=== PATIENT | female | born 1975 | race Caucasian/White ===

== ENCOUNTER 2020-09-25 12:28 | Outpatient (REF) | payer OTHER, SELFPAY | END 2020-09-25 12:29 | disposition home or self-care (01) | LOC: HO.LAB 12:28 | PROVIDERS: Visit Provider Nurse Practitioner Family | DX: Z20.828 Contact with and (suspected) exposure to other viral communicable diseases (principal); R11.0 Nausea | CPT/HCPCS: U0003 ==

== ENCOUNTER → 2020-12-11 10:23 | Outpatient (BNVA) | payer OTHER, SELFPAY | PROVIDERS: PCP Internal Medicine; Visit Provider Surgery Vascular Surgery | DX: I83.12 Varicose veins of left lower extremity with inflammation (principal) | CPT/HCPCS: 99202 ==

== ENCOUNTER 2020-12-16 10:17 | Outpatient (REF) | payer OTHER, SELFPAY ==
--- NOTE | ~2020-12-16 | US_ITS ---
EXAMINATION: US VENOUS ULTRASOUND WITH DOPPLER LOWER EXTREMITY, BILATERAL CLINICAL INFORMATION: EXAMINATION: RIGHT and LEFT LOWER EXTREMITY VENOUS ULTRASOUND (Reflux Exam) CLINICAL INDICATION: leg pain and varicose veins. COMPARISON: None. TECHNIQUE: Color flow triplex imaging and compression Doppler was performed to evaluate both the deep and the superficial systems bilaterally. To evaluate the superficial system, the examination was performed in the upright position. Color-flow Doppler ultrasound and compression ultrasound were utilized. In addition, maneuvers were utilized to demonstrate reflux. FINDINGS: 1. DEEP VENOUS ULTRASOUND OF THE RIGHT LOWER EXTREMITY: Respiratory variation, normal compression and augmented flow are noted in the right common femoral vein as well as the right popliteal vein and there is no evidence of deep venous thrombosis at these locations. There is no evidence of reflux in the deep system in either the common femoral vein or the popliteal vein. There is no evidence of a Velásquez's cyst. 2. SUPERFICIAL ULTRASOUND WITH DOPPLER OF RIGHT LOWER EXTREMITY: The right great saphenous vein at the saphenofemoral junction measures 9 mm, at the mid thigh 4 mm, tzauv-xkg-brsy 4 mm, sdpfr-xpa-gsil 4 mm, at mid calf 2 mm and at the ankle measures 3 mm. There is no reflux demonstrated in the right great saphenous vein. There is a lateral accessory greater saphenous vein that measures 3 mm and does not demonstrate reflux. The right small saphenous vein measures 2 mm and shows no reflux. There is a bariatric nurse in the proximal calf that measures 2 mm and does not demonstrate reflux. 3. DEEP VENOUS ULTRASOUND OF THE LEFT LOWER EXTREMITY: Respiratory variation, normal compression and augmented flow are noted in the left common femoral vein as well as the left popliteal vein and there is no evidence of deep venous thrombosis at these locations. There is no evidence of reflux in the deep system in either the common femoral vein or the popliteal vein. . There is no evidence of a Velásquez's cyst. 4. SUPERFICIAL ULTRASOUND WITH DOPPLER OF LEFT LOWER EXTREMITY: Left great saphenous vein at the saphenofemoral junction measures 8 mm, at the mid thigh 5 mm, qzwft-arv-mcjq 5 mm, sjkgu-kes-xavm 3 mm, at mid calf 2 mm and at the ankle measures 2 mm. There is no reflux demonstrated in the left great saphenous vein. There is an accessory lateral greater saphenous vein that measures 4 mm and does not demonstrate reflux. The left small saphenous vein measures 2-3 mm and shows no reflux. There is a bariatric nurse in the distal calf that measures 2 mm and does not demonstrate reflux. There is a varicosity at the saphenofemoral junction measures 3 mm and does not demonstrate reflux. US/US venous duplex LE BI IMPRESSION: 1. No evidence of reflux or thrombus in the common femoral veins or popliteal veins bilaterally. 2. The saphenous systems are competent bilaterally.
== END 2020-12-16 10:18 | disposition home or self-care (01) ==
LOC: HO.US 10:17
PROVIDERS: PCP Internal Medicine; Visit Provider Surgery Vascular Surgery
DX: I83.893 Varicose veins of bilateral lower extremities with other complications (principal)
CPT/HCPCS: 93970

== ENCOUNTER → 2020-12-30 09:58 | Outpatient (BNVA) | payer OTHER, SELFPAY | PROVIDERS: PCP Internal Medicine; Visit Provider Surgery Vascular Surgery | DX: I83.12 Varicose veins of left lower extremity with inflammation (principal) | CPT/HCPCS: 99212 ==

== ENCOUNTER 2022-02-10 12:03 | Outpatient (REF) | payer OTHER, SELFPAY ==
[2022-02-10 13:50] LABS: MANUAL DIFF FLAG NO
[2022-02-10 14:01] LABS: Basophils Percent Auto 0.7 % (0-2); Eosinophils Absolute Auto 0.1 X10*3/uL (0.0-0.4); Eosinophils Percent Auto 1.1 % (0-4); Hematocrit 39.4 % (37.0-47.0); Imm Gran Abs Auto 0.01 X10*3/uL (0.00-0.03); Imm Gran Pct Auto 0.2 % (0.0-0.4); Lymphocytes Absolute Auto 1.8 X10*3/uL (1.2-4.9); Lymphocytes Percent Auto 39.6 % (20-40); Mean Corpuscular Volume 93.8 fL (80.0-98.0); Mean Platelet Volume 9.6 fL (9.4-12.3); Monocytes Absolute Auto 0.5 X10*3/uL (0.1-1.2); Monocytes Percent Auto 11.6 % (2-11); Neutrophils Absolute Auto 2.1 x10*3/uL (2.0-8.3); Neutrophils Percent Auto 46.8 % (45-73); Platelet Count 291 X10*3/uL (160-400); Red Cell Distribution Width 12.9 % (11.0-16.0); White Blood Count 4.6 X10*3/uL (4.8-10.8)
[2022-02-10 14:20] LABS: Alanine Aminotransferase 18 U/L (0-31); Albumin Level 4.2 g/dL (3.5-5.0); Alkaline Phosphatase 54 U/L (39-117); Anion Gap 9 (12-20); Aspartate Amino Transferase 16 U/L (5-31); Bilirubin Total 0.3 mg/dL (0.0-1.0); Blood Urea Nitrogen 16 mg/dL (9-16); Calcium 9.4 mg/dL (8.4-10.2); Carbon Dioxide 27 mmol/L (22-29); Chloride 105 mmol/L (96-108); Estimated Glomerular Filt Rate > 60; Glucose Random 91 mg/dL (60-115); Potassium 4.7 mmol/L (3.3-5.1); Sodium 136 mmol/L (135-145)
[2022-02-10 14:25] LABS: TSH reflex Free T4 1.56 uIU/mL (0.32-4.0); Vitamin D 25-OH Total 21.2 ng/mL (>30)
== END 2022-02-10 12:04 | disposition home or self-care (01) ==
LOC: HO.HMGCLDS 12:03
PROVIDERS: PCP Internal Medicine; Visit Provider Internal Medicine
DX: R53.83 Other fatigue (principal)
CPT/HCPCS: 36415; 80053; 82306; 84443; 85025

== ENCOUNTER 2022-06-25 16:21 | Outpatient (REF) | payer OTHER, SELFPAY ==
[2022-06-25 17:21] LABS: Influenza A PCR NEGATIVE (Negative); Influenza B PCR NEGATIVE (Negative); Resp Syncy Virus RNA Qual PCR NEGATIVE (Negative); SARS COV2 PCR INHOUSE NEGATIVE (Negative)
== END 2022-06-25 16:22 | disposition home or self-care (01) ==
LOC: HO.LNP 16:21
DX: Z20.822 Contact with and (suspected) exposure to COVID-19 (principal); R05.9 Cough, unspecified
CPT/HCPCS: 0241U

== ENCOUNTER 2022-11-08 09:12 | Outpatient (AMB) | payer OTHER, SELFPAY ==
--- NOTE | 2022-11-08 09:15 | A.OFFPC_ITS ---
Vital Signs 11/08/22 09:38 Height 5 ft 6 in Weight 162 lb BMI 26.1 BP 136/80 Blood Pressure Location Lt brachial Position Sitting Pulse 79 Pulse Source Pulse Oximeter Pulse Oximetry (%) 99 Oxygen Delivery Method Room Air Intake Visit Reasons: PE Intake Note: Pt is here today for her PE Allergies bupropion Allergy (Unknown, Verified 11/08/22 09:50) Constipation Medication List - Last Reconciled 11/08/22 by Becky Nowak MD escitalopram oxalate 10 mg PO QAM Tobacco use date assessed: 11/08/22 HPI PE HPI Details 47-year-old lady, with history of depression, currently stable controlled on escitalopram 10 mg once daily in the morning, currently being followed by psych wellness care and sees Dayna Martinez every 2 months now , here today for physical exam. She has been complaining of intermittent episodes of heartburn, and bloating, and is overdue to get her colon cancer screening. Complains of having hard time taking deep breath still, after margaret COVID, has frequent nasal congestion, postnasal drainage and sinus headaches are worse at night. [facility] Medical History Allergic rhinitis Colon cancer screening Cough COVID-19 long hauler manifesting chronic fatigue Depression Heartburn History of 2019 novel coronavirus disease (COVID-19) Vitamin D deficiency Surgical History Ganglion cyst of finger of right hand Family History Father HTN (hypertension) Lung cancer Mother Breast cancer Paternal Grandmother Breast cancer Brother No problems noted. Brother No problems noted. Sister No problems noted. Sister No problems noted. Daughter No problems noted. Social History Housing: House Alcohol intake: current Patient Tobacco Use Status: Current someday Tobacco user e-Cigarette/Vaping Use: Never Used service: No Current occupational status: employed Cognitive needs: No Hearing needs: No Vision needs: No Questionnaire PHQ-9 Over the last 2 weeks, how often have you been bothered by any of the following problems? 1. Little interest or pleasure in doing things: several days 2. Feeling down, depressed, or hopeless: several days 3. Trouble falling or staying asleep, or sleeping too much: several days 4. Feeling tired or having little energy: several days 5. Poor appetite or overeating: several days 6. Feeling bad about yourself - or that you are a failure or have let yourself or your family down: not at all 7. Trouble concentrating on things, such as reading the newspaper or watching television: not at all 8. Moving or speaking so slowly that other people could have noticed. Or the opposite - being so fidgety or restless that you have been moving around a lot more than usual: not at all 9. Thoughts that you would be better off or of hurting yourself in some way: not at all Total score: 5 Depression Screening Interpretation: Positive Depression Screening Follow-up: Existing condition and In treatment 81372 - PHQ-9 Billing: Yes (sees Christie Ca every 2 months for counseling) Source: Developed by Drs. Baron Puckett, Jessica Hicks, Brad Wynn and colleagues, with an educational chris from [employer]. Thrive Questionnaire Declines Thrive assessment: No Date Thrive assessed: 11/08/22 I am a: Patient What is your living situation today?: I have a steady place to live Within the past 12 months, did the food you bought not last and you didn't have the money to get more?: Never true Within the past 12 months, did you worry whether your food would run out before you got money to buy more?: Never true Do you have trouble paying for medicines?: No Do you have trouble getting transportation to medical appointments?: No Do you have trouble paying your heating and electricity bill?: No Do you have trouble taking care of your child, family member or friend?: No Do you have trouble with day-to-day activities such as bathing, preparing meals, shopping, managing finances, etc.?: No Are you currently unemployed and looking for a job?: No Are you interested in more education?: No AUDIT C Alcohol Use Questionnaire (AUDIT-C) 1. How often do you have a drink containing alcohol?: 2-3 times a week 2. How many drinks containing alcohol do you have on a typical day when you are drinking?: 1 or 2 3. How often do you have six or more drinks on one occasion?: Never Total Score: 3 CHRISTOPHER-7 AMB Questionnaire CHRISTOPHER-7 Date CHRISTOPHER - 7 assessed: 11/08/22 Feeling nervous, anxious, or on edge: 1 = Several days Not being able to stop or control worryin = Not at all Worrying too much about different things: 0 = Not at all Trouble relaxin = Several days Being so restless that it is hard to sit still: 0 = Not at all Becoming easily annoyed or irritable: 1 = Several days Feeling afraid as if something awful might happen: 0 = Not at all Total CHRISTOPHER-7 score (0-4 normal; 5-9 mild; 10-14 moderate; 15-21 severe): 3 Source: Developed by Drs. Baron Puckett, Jessica Hicks, Brad Wynn and colleagues, with an educational chris from [employer]. CHRISTOPHER-7 Assessment Billing CHRISTOPHER-7 Assessment Tool: CHRISTOPHER-7 Assessment 95677 Review of Systems Const Denies body aches, Denies chills, Denies fever(s), Denies poor appetite and Denies weakness Eyes Denies change in vision ENT Reports Normal hearing present, Denies dry mouth, Denies ear discharge, Denies otalgia, Denies epistaxis, Denies neck pain, Denies sore throat and Denies throat swelling Card Denies chest pain, Denies chest pain at rest, Denies chest pain with activity and Denies pedal edema Resp Denies pain on inspiration, Denies pain with cough and Denies wheezing GI Reports as per HPI, Denies abdominal pain, Denies melena, Reports bloating, Denies hematochezia and Denies change in bowel habits Denies urinary frequency, Denies difficulty voiding, Denies dysuria, Denies urinary incontinence and Denies urinary hesitancy Musc Denies abnormal gait, Denies myalgias, Denies arthralgias, Denies muscle cramps, Denies muscle weakness and Denies neck pain Skin/Breast Denies rash and Denies skin pain Neuro Reports Normal hearing present, Denies abnormal gait and Denies weakness Psych Reports no additional complaints Endo Reports no additional complaints Boris/Lymph Denies easy bleeding, Denies easy bruising and Denies lymphadenopathy Aller/Immun Denies throat swelling and Denies wheezing Physical exam (Primary Care) Vital Signs: Last Vital Signs Pulse 79 11/08/22 09:38 BP 136/80 11/08/22 09:38 Pulse Ox 99 11/08/22 09:38 Oxygen Delivery Method Room Air 11/08/22 09:38 BMI result Body Mass Index 26.1 Tobacco/Smoking Status: Tobacco use Status Tobacco use date assessed 11/08/22 11/08/22 09:16 Patient Tobacco Use Status Current someday Tobacco 11/08/22 09:16 e-Cigarette/Vaping Use Never Used 11/08/22 09:16 PHQ-9: PHQ-9 Score PHQ-9: Total score 5 11/08/22 10:23 Depression Screening Interpretation: Positive Depression Screening Follow-up: Existing condition and In treatment Thrive Assessment: Date of Thrive Assessment Date Thrive assessed 11/08/22 11/08/22 09:48 Const General: comfortable, no acute distress and alert Orientation/consciousness: patient oriented x3 Limitations: no limitations HENMT Ears: external ears normal, TM's normal bilaterally and EAC's normal General nose exam: Normal external nose present and No nasal discharge present Mouth: Normal oral and palatal mucosa present, oropharynx normal and moist mucous membranes Eyes General: appearance normal, both eyes and all related structures Conjunctivae: conjunctivae normal Sclerae: sclerae normal Pupils: Equal, round and reactive pupils present EOM: EOMs intact bilaterally Neck Neck: Yes full ROM, Yes no lymphadenopathy and Yes supple Resp Effort & Inspection: normal respiratory effort and able to speak in complete sentences Auscultation: clear to auscultation bilaterally Cardio Rate: regular rate Rhythm: regular rhythm Heart sounds: S1 normal heart sound present and S2 normal heart sound present GI Palpation (GI): Soft to palpation, nontender and no masses Auscultation: normal bowel sounds Back/Spine/Pelvis Back: No back tenderness Skin General skin exam: no rashes or lesions noted Neuro General: patient oriented x3, gait normal, tone normal, moves all extremities, Normal light touch and pain sensation and no focal motor deficits Cranial nerves: Yes Equal, round and reactive pupils present and Yes Normal hearing present Cognition (Neuro): normal cognition Extrem General: Yes full ROM, Yes no joint enlargement, Yes no clubbing, cyanosis or edema and Yes no calf tenderness Psych Appearance: grossly normal and well kempt Mental Status: mental status grossly normal Speech and movement: Normal speech and movement present Affect: normal affect Attitude: cooperative Thought process: Normal thought process present Thought content: Normal thought content present Immunizations Boostrix Tdap Performing Provider: Becky Nowak MD Administered by: Mer Gale CMA on 11/08/22 10:25 Dose Route Admin Location Lot Number Expiration Date [employer] 0.5 mL IM Left Deltoid [id number] 09/01/24 [id number] [employer] VIS Given Date VIS Provided VIS Publication Date 11/08/22 Single Vaccine 21 Eligibility Eligibility Date Funding Source Not C Eligible 11/08/22 Private Assessment and Plan Assessment & Plan (1) Depression: Code(s): F32.9 - Major depressive disorder, single episode, unspecified Qualifiers: Active/Remission status: in full remission Depression Type: major depressive disorder Major depression recurrence: recurrent Qualified Code(s): F33.42 - Major depressive disorder, recurrent, in full remission Plan: Stable controlled on escitalopram 10 mg once a day and currently being followed at [facility], sees her therapist every 2 months now (2) Annual visit for general adult medical examination with abnormal findings: Code(s): Z00.01 - Encounter for general adult medical examination with abnormal findings Plan: Will check appropriate labs. Recommended dental visit every 6 months and regular eye exams, at least every 2 years. Take adequate calcium in diet and vitamin-D 3 at 2000 IU per cap once a day, in addition to weight-bearing exercises to help maintain good muscle tone and weight control. Instructed to do self-breast exam, and continue to get yearly mammogram. Referred for her screening colonoscopy. Reminded to get her COVID booster, has to get the flu shot, will give her a Tdap today. (3) Heartburn: Code(s): R12 - Heartburn Plan: Advised to food triggers for heartburn, avoid eating late at night, may take an occasional Pepcid AC osqo-oiv-awlmtjl once a day as needed for heartburn symptoms, patient was referred to GI for further evaluation and management (4) Allergic rhinitis: Code(s): J30.9 - Allergic rhinitis, unspecified Plan: Prescription sent for loratadine 10 mg once a day as needed for nasal congestion and rhinorrhea and prescription also sent for fluticasone nasal spray 1 spray per nostril as needed for nasal congestion. (5) Colon cancer screening: Code(s): Z12.11 - Encounter for screening for malignant neoplasm of colon Plan: Referred to GI clinic for screening colonoscopy (6) Vitamin D deficiency: Code(s): E55.9 - Vitamin D deficiency, unspecified Plan: Will check vitamin-D level Orders: Orders Alanine Aminotransferase Today E55.9 - Vitamin D deficiency, unspecified, F33.42 - Major depressive disorder, recurrent, in full remission, Z00.01 - Encounter for general adult medical examination with abnormal findings Aspartate Amino Transferase Today E55.9 - Vitamin D deficiency, unspecified, F33.42 - Major depressive disorder, recurrent, in full remission, Z00.01 - Encounter for general adult medical examination with abnormal findings Glucose Fasting Today E55.9 - Vitamin D deficiency, unspecified, F33.42 - Major depressive disorder, recurrent, in full remission, Z00.01 - Encounter for general adult medical examination with abnormal findings Lipid Panel Today E55.9 - Vitamin D deficiency, unspecified, F33.42 - Major depressive disorder, recurrent, in full remission, Z00.01 - Encounter for general adult medical examination with abnormal findings Vitamin D 25-OH Total Today E55.9 - Vitamin D deficiency, unspecified, F33.42 - Major depressive disorder, recurrent, in full remission, Z00.01 - Encounter for general adult medical examination with abnormal findings TDaP Immunization Today Z23 - Encounter for immunization Referrals Gastroenterology Referral R12 - Heartburn, Z12.11 - Encounter for screening for malignant neoplasm of colon Medications: New fluticasone propionate 50 mcg/actuation administer into each nostril 1 spray intranasal DAILY 16 grams 0RF J30.9 - Allergic rhinitis, unspecified loratadine (Allergy Relief (loratadine)) 10 mg PO DAILY PRN 30 tabs 0RF allergy symptoms Coding Level of Care Code Est Pt Prev Care 40-64y([id number]) Diagnoses Depression F33.42 Active/Remission status: in full remission Depression Type: major depressive disorder Major depression recurrence: recurrent Annual visit for general adult medical examination with abnormal findings Z00.01 Heartburn R12 Allergic rhinitis J30.9 Colon cancer screening Z12.11 Vitamin D deficiency E55.9 Additional Codes CHRISTOPHER-7 Assessment Billing - CHRISTOPHER-7 Assessment Tool: CHRISTOPHER-7 Assessment [id number] ([id number])
[2022-11-08 09:38] VITALS: BP 136/80; PULSE 79; O2SAT 99; BMI 26.1
== END 2022-11-08 10:24 | disposition home or self-care (01) ==
LOC: HO.HMGC 09:12
PROVIDERS: PCP Internal Medicine; Visit Provider Internal Medicine
DX: F33.42 Major depressive disorder, recurrent, in full remission (principal); Z00.01 Encounter for general adult medical examination with abnormal findings; R12 Heartburn; J30.9 Allergic rhinitis, unspecified; Z12.11 Encounter for screening for malignant neoplasm of colon; E55.9 Vitamin D deficiency, unspecified
CPT/HCPCS: 99499

== ENCOUNTER 2023-01-12 08:56 | Outpatient (REF) | payer OTHER, SELFPAY ==
[2023-01-12 12:13] LABS: Alanine Aminotransferase 16 U/L (0-31); Aspartate Amino Transferase 15 U/L (5-31); Cholesterol 230 mg/dL; Glucose Fasting 87 mg/dL (60-99); HDL Cholesterol 72 mg/dL; LDL Cholesterol Calculated 142 mg/dl; Triglycerides 83 mg/dL
[2023-01-12 12:40] LABS: Vitamin D 25-OH Total 34.7 ng/mL (>30)
== END 2023-01-12 08:57 | disposition home or self-care (01) ==
LOC: HO.HMGCLDS 08:56
PROVIDERS: PCP Internal Medicine; Visit Provider Internal Medicine
DX: Z00.01 Encounter for general adult medical examination with abnormal findings (principal); E55.9 Vitamin D deficiency, unspecified; F33.42 Major depressive disorder, recurrent, in full remission
CPT/HCPCS: 36415; 80061; 82306; 82947; 84450; 84460

== ENCOUNTER → 2023-02-09 12:00 | Outpatient (BNVA) | payer OTHER, SELFPAY | PROVIDERS: PCP Internal Medicine; Referring Provider Internal Medicine; Visit Provider Physician Assistant | DX: Z12.11 Encounter for screening for malignant neoplasm of colon (principal); R12 Heartburn | CPT/HCPCS: 99202 ==

== ENCOUNTER → 2023-12-21 08:18 | Day surgery (SDC) | payer OTHER, SELFPAY ==
--- NOTE | 2023-12-20 08:18 | HO.ANESPROP2 ---
Documented by User: Delma Barnes NP 12/20/23 08:18 HPI - Anesthesia Eval Consult details Narrative: 48yo F for Upper Endoscopy and Colonoscopy PMFSH Active Problems Active Problems: All Active Problems (Updated 11/08/22 @ 10:14 by Becky Nowak MD) Allergic rhinitis (Acute) Colon cancer screening (Acute) Heartburn (Acute) Vitamin D deficiency (Acute) COVID-19 amanda hauler manifesting chronic fatigue (Acute) Varicose veins of left lower extremity with inflammation (Acute) Depression (Acute) Past Medical History Medical History Allergic rhinitis Colon cancer screening Cough COVID-19 amanda hauler manifesting chronic fatigue Depression Heartburn History of 2019 novel coronavirus disease (COVID-19) Vitamin D deficiency Family History Family History Father HTN (hypertension) Lung cancer Mother Breast cancer Paternal Grandmother Breast cancer Brother No problems noted. Brother No problems noted. Sister No problems noted. Sister No problems noted. Daughter No problems noted. Surgical History Surgical History Ganglion cyst of finger of right hand Social History Social History Housing: House Alcohol intake: current Patient Tobacco Use Status: Current someday Tobacco user e-Cigarette/Vaping Use: Never Used Advance Directives: No Advance Directives Information Provided: Yes service: No Current occupational status: employed Cognitive needs: No Hearing needs: No Vision needs: No Meds Allergies Allergy/AdvReac Type Severity Reaction Status Date / Time bupropion Allergy Unknown Constipatio Verified 12/21/23 09:02 n Home Medications Medication Instructions Recorded Confirmed Last Taken Type escitalopram oxalate 20 mg tablet 20 mg PO DAILY 12/21/23 12/21/23 Unknown History nortriptyline 25 mg capsule 25 mg PO BEDTIME 12/21/23 12/21/23 Unknown History Assessment and Plan Assessment Anesthesia Assessment: Chart Reviewed Documented by User: Yael Jackson MD 12/21/23 09:16 [facility] Past Medical History Medical History Allergic rhinitis Colon cancer screening Cough COVID-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 Brother No problems noted. Sister No problems noted. Sister No problems noted. Daughter No problems noted. Family history of problems with anesthesia: No Surgical History Surgical History Ganglion cyst of finger of right hand History of Problems with Anesthesia: No Social History Social History Housing: House Alcohol intake: current Patient Tobacco Use Status: Current someday Tobacco user e-Cigarette/Vaping Use: Never Used Advance Directives: No Advance Directives Information Provided: Yes service: No Current occupational status: employed Cognitive needs: No Hearing needs: No Vision needs: No Meds Allergies Allergy/AdvReac Type Severity Reaction Status Date / Time bupropion Allergy Unknown Constipatio Verified 12/21/23 09:02 n Home Medications Medication Instructions Recorded Confirmed Last Taken Type escitalopram oxalate 20 mg tablet 20 mg PO DAILY 12/21/23 12/21/23 Unknown History nortriptyline 25 mg capsule 25 mg PO BEDTIME 12/21/23 12/21/23 Unknown History Exam Airway Mallampati Class: II TM Dist: >3cm Neck ROM: Full Heart: rrr Lungs: cta Assessment and Plan Assessment Anesthesia Assessment: Anesthesia Plan Discussed Final Anesthetic Review Family History of Problems with Anesthesia: No History of Problems with Anesthesia: No NPO: Yes ASA Class: II Final Preanesthetic Review: No Changes in Pt Med Stat, Meds/Allgs Chart Reviewed and Consent Obtained/Reviewed Patient Risk: Low Procedure Risk: Intermediate Anesthetic Plan Anesthetic Plan: MAC: Disposition: Standard PACU
[2023-12-21 09:00] VITALS: BMI 25.8
--- NOTE | 2023-12-21 09:10 | P.HPSUR_ITS ---
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 Depression Heartburn History of 2019 novel coronavirus disease (COVID-19) Vitamin D deficiency) History of Previous Operations: Relevant previous surgery/procedure and date(s) (Ganglion cyst of finger of right hand) Allergies: Allergies Allergy/AdvReac Type Severity Reaction Status Date / Time bupropion Allergy Unknown Constipatio Verified 12/21/23 09:02 n Review of Systems Sugical H&P ROS: Negative: Constitution, Cardiovascular, Respiratory, Neurological, Psychiatric, Hem-Onc, Allergic/Immunologic, Gastrointestinal, Genitourinary, Musculoskeletal, Integumentary, Endocrine and Ey es/Ears/Nose/Throat Exam Surgical H&P Exam: Normal: HEENT, Normal: Heart, Normal: Lungs, Normal: Extremities, Normal: Abdomen, Normal: Skin and Normal: Neurological Plan Diagnosis/Plan: Unchanged I have reviewed the history and physical and performed a pertinent physical examination on my patient. No changes have occurred unless specified. Time Spent With Patient Time: Total time managing care of this patient today ____ minutes.
[2023-12-21 09:17] LABS: UPreg QC Valid YES; Urine Pregnancy NEGATIVE (NEGATIVE)
[2023-12-21 09:25] VITALS: BP 175/101; PULSE 76; RESP 18; TEMP 36.8; O2SAT 98
[2023-12-21] MEDS: Lactated Ringers 1,000 ML 100 ML IVCONT (09:36)
--- NOTE | 2023-12-21 09:37 | P.OP_ITS ---
Operative Note Operative Note Date of Service: 12/21/23 Narrative: Operative Information Procedure Description: EGD, Colonoscopy Indication: [] Anesthesia: [] FLEXIBLE TRANSORAL UPPER GASTROINTESTINAL ENDOSCOPY AND COLONOSCOPY PROCEDURE NOTE UPPER ENDOSCOPY Consent: Indications for the procedure and potential complications of bleeding, perforation, reaction to medications and missed diagnosis were discussed with the patient and informed consent was obtained. Instrument: Olympus GIF H 190 J mid size upper endoscope Monitoring: Vital signs and clinical assessment, continuous EKG monitoring, Pulse oximetry, Carbon Dioxide monitoring and blood pressure monitoring were done throughout the procedure. Procedure: The patient was placed in the left lateral decubitis position and pre-procedure medications were administered and a bite block was placed. The endoscope was inserted into the mouth and advanced under direct vision to the third part of duodenum. A careful inspection was made as the upper endoscope was withdrawn including a retroflexed examination of the proximal stomach; Findings and interventions are described below. Findings: Larynx:normal Esophagus: GE junction at 40 cm, diaphragm hiatus at 40 cm, normal mucosa Stomach: Normal mucosa. Biopsies were obtained. Grade 2 flap valve on retroflexed examination of the cardia. Duodenum: Normal bulb and descending duodenum, Intervention: Biopsies as noted above, COLONOSCOPY Instrument: Olympus variable stiffness pediatric scope 190L Colonoscopy Monitoring: Vital signs and clinical assessment, continuous EKG monitoring, Pulse oximetry, Carbon Dioxide monitoring and blood pressure monitoring were done throughout the procedure. Colon withdrawal time was [] minutes. Procedure: The patient was placed in the left lateral decubitis position and pre-procedure medications were administered. After a digital rectal examination of the ano-rectum, the video colonoscope was inserted into the rectum and advanced through the colon to the cecum/TI. The colonoscope was slowly withdrawn in a retrograde panoramic fashion and the colon mucosa was carefully examined including a retroflexed view of the rectum. Findings and interventions are described below. Procedure Difficulty:moderate Findings: Terminal Ileum-normal Cecum:normal Ascending Colon: normal Transverse Colon -normal Descending Colon:normal Sigmoid Colon: normal Rectum: Retroflexion with [] internal hemorrhoids, grade [] Anorectum - normal Colon preparation: [place] Bowel Preparation Scale Right colon; [] Transverse colon: [] Left colon; [] (0 = Unprepared colon segment with mucosa not seen due to solid stool that cannot be cleared. 1 = Portion of mucosa of the colon segment seen, but other areas of the colon segment not well seen due to staining, residual stool and/or opaque liquid. 2 = Minor amount of residual staining, small fragments of stool and/or opaque liquid, but mucosa of colon segment seen well. 3 = Entire mucosa of colon segment seen well with no residual staining, small fragments of stool or opaque liquid) Impression and Post Procedure Diagnosis: Endoscopy Findings: [] Colonoscopy Findings: [] Plan: Await Pathology results Repeat Colonoscopy in [] years or earlier if clinically indicated High fiber diet leaflet avoid straining at stool, epsom salts and sitz bath, anusol supps or cream Above findings were reviewed with the patient and relevant handouts were provided if indicated.
[2023-12-21 09:56] LABS: Amphetamine Screen Urine Not Detected (Not Detect); Barbiturates, Urine Not Detected (Not Detect); Benzodiazepines Screen Urine Not Detected (Not Detect); Cannabinoid Screen Urine Not Detected (Not Detect); Cocaine Screen Urine POSITIVE (Not Detect); Fentanyl, urine Not Detected (Not Detect); Opiate Screen Urine Not Detected (Not Detect); Phencyclidine Screen Urine Not Detected (Not Detect)
== END ==
PROVIDERS: Anesthesiology; Nurse Practitioner; PCP Internal Medicine; Visit Provider Internal Medicine Gastroenterology
DX: Z12.11 Encounter for screening for malignant neoplasm of colon (principal); Z53.8 Procedure and treatment not carried out for other reasons; R12 Heartburn
CPT/HCPCS: 80307; 81025

== ENCOUNTER 2024-04-17 07:44 | Day surgery (SDC) | payer OTHER, SELFPAY ==
--- NOTE | 2024-04-16 12:36 | HO.ANESPROP2 ---
Documented by User: Delma Barnes NP 04/16/24 12:37 HPI - Anesthesia Eval Consult details Narrative: 48yo F for Upper Endoscopy and Colonoscopy PMFSH Active Problems Active Problems: All Active Problems Allergic rhinitis (Acute) Colon cancer screening (Acute) Heartburn (Acute) Vitamin D deficiency (Acute) COVID-19 amanda hanicole manifesting chronic fatigue (Acute) Varicose veins of left lower extremity with inflammation (Acute) Depression (Acute) Past Medical History Medical History Allergic rhinitis Colon cancer screening Heartburn Cough Vitamin D deficiency COVID-19 amanda garcia manifesting chronic fatigue History of 2019 novel coronavirus disease (COVID-19) Depression Family History Family History Father HTN (hypertension) Lung cancer Mother Breast cancer Paternal Grandmother Breast cancer Brother No problems noted. Brother No problems noted. Sister No problems noted. Sister No problems noted. Daughter No problems noted. Family history of problems with anesthesia: No Surgical History Surgical History Ganglion cyst of finger of right hand History of Problems with Anesthesia: No Social History Social History Housing: House Alcohol intake: current Alcohol intake frequency: does not drink Patient Tobacco Use Status: Current everyday Tobacco user e-Cigarette/Vaping Use: Never Used Are you DNR?: No Advance Directives: No Advance Directives Information Provided: Yes Nutrition Risks: No Nutritional Risk service: No Current occupational status: employed Cognitive needs: No Hearing needs: No Vision needs: No Meds Allergies Allergy/AdvReac Type Severity Reaction Status Date / Time bupropion Allergy Unknown Constipatio Verified 12/21/23 09:02 n Home Medications ?Medication ?Instructions ?Recorded ?Confirmed ?Last Taken ?Type escitalopram oxalate 20 mg tablet 20 mg PO DAILY 12/21/23 12/21/23 Unknown History nortriptyline 25 mg capsule 25 mg PO BEDTIME 12/21/23 12/21/23 Unknown History Assessment and Plan Assessment Anesthesia Assessment: Chart Reviewed Final Anesthetic Review Family History of Problems with Anesthesia: No History of Problems with Anesthesia: No Documented by User: Naomie Guy MD 04/17/24 08:53 PMFSH Past Medical History Medical History Allergic rhinitis Colon cancer screening Heartburn Cough Vitamin D deficiency COVID-19 long hauler manifesting chronic fatigue History of 2019 novel coronavirus disease (COVID-19) Depression Family History Family History Father HTN (hypertension) Lung cancer Mother Breast cancer Paternal Grandmother Breast cancer Brother No problems noted. Brother No problems noted. Sister No problems noted. Sister No problems noted. Daughter No problems noted. Surgical History Surgical History Ganglion cyst of finger of right hand Social History Social History Housing: House Alcohol intake: current Alcohol intake frequency: does not drink Patient Tobacco Use Status: Current everyday Tobacco user e-Cigarette/Vaping Use: Never Used Are you DNR?: No Advance Directives: No Advance Directives Information Provided: Yes Nutrition Risks: No Nutritional Risk service: No Current occupational status: employed Cognitive needs: No Hearing needs: No Vision needs: No Meds Allergies Allergy/AdvReac Type Severity Reaction Status Date / Time bupropion Allergy Unknown Constipatio Verified 12/21/23 09:02 n Home Medications ?Medication ?Instructions ?Recorded ?Confirmed ?Last Taken ?Type escitalopram oxalate 20 mg tablet 20 mg PO DAILY 12/21/23 12/21/23 Unknown History nortriptyline 25 mg capsule 25 mg PO BEDTIME 12/21/23 12/21/23 Unknown History Exam Airway Mallampati Class: II TM Dist: >3cm Neck ROM: Full Heart: rrr Lungs: cta Assessment and Plan Assessment Anesthesia Assessment: Anesthesia Plan Discussed Final Anesthetic Review NPO: Yes ASA Class: II Final Preanesthetic Review: No Changes in Pt Med Stat, Meds/Allgs Chart Reviewed, Consent Obtained/Reviewed and Anes Risks/Benef Reviewed Patient Risk: Low Procedure Risk: Low Anesthetic Plan Anesthetic Plan: MAC: Disposition: Standard PACU
[2024-04-17 06:09] VITALS: BMI 29.6
[2024-04-17 08:30] VITALS: BP 169/98; PULSE 86; RESP 18; TEMP 36.9; O2SAT 98
[2024-04-17 08:43] LABS: UPreg QC Valid YES; Urine Pregnancy NEGATIVE (NEGATIVE)
[2024-04-17] MEDS: Lactated Ringers 1,000 ML 100 ML IVCONT (08:50)
[2024-04-17 08:54] VITALS: BP 149/93
--- NOTE | 2024-04-17 09:39 | P.HPSUR_ITS ---
Pre-Procedural Eval Section A - 24 Hr Update-Section A only Date of Service: 04/17/24 Section B - Complete if H&P > 30 days Chief Complaint: Encounter for screening for malignant neoplasm of Relevant Family History (Specify if Yes): No Relevant Social History: None Present Medications: see Short Stay Collaborative assessment Medical History: Significant History (Allergic rhinitis Colon cancer screening Heartburn Cough Vitamin D deficiency COVID-19 long hauler manifesting chronic fatigue History of 2019 novel coronavirus disease (COVID-19) Depression) History of Previous Operations: Relevant previous surgery/procedure and date(s) (Ganglion cyst of finger of right hand) Allergies: Allergies Allergy/AdvReac Type Severity Reaction Status Date / Time bupropion Allergy Unknown Constipatio Verified 12/21/23 09:02 n Review of Systems Sugical H&P ROS: Negative: Constitution, Cardiovascular, Respiratory, Neurological, Psychiatric, Hem-Onc, Allergic/Immunologic, Gastrointestinal, Genitourinary, Musculoskeletal, Integumentary, Endocrine and Eyes/Ears /Nose/Throat Exam Surgical H&P Exam: Normal: HEENT, Normal: Heart, Normal: Lungs, Normal: Extremities, Normal: Abdomen, Normal: Skin and Normal: Neurological Plan Diagnosis/Plan: Unchanged I have reviewed the history and physical and performed a pertinent physical examination on my patient. No changes have occurred unless specified. EGD for heartburn. Time Spent With Patient Time: Total time managing care of this patient today ____ minutes.
--- NOTE | 2024-04-17 09:42 | HO.OPN-COLON ---
Colonoscopy Operative Note Operative Note Date of Service: 04/17/24 Narrative: Operative Information Procedure Description: EGD, Colonoscopy Indication: GERD, screening Anesthesia: MAC FLEXIBLE TRANSORAL UPPER GASTROINTESTINAL ENDOSCOPY AND COLONOSCOPY PROCEDURE NOTE UPPER ENDOSCOPY Consent: Indications for the procedure and potential complications of bleeding, perforation, reaction to medications and missed diagnosis were discussed with the patient and informed consent was obtained. Instrument: Olympus GIF H 190 J mid size upper endoscope Monitoring: Vital signs and clinical assessment, continuous EKG monitoring, Pulse oximetry, Carbon Dioxide monitoring and blood pressure monitoring were done throughout the procedure. Procedure: The patient was placed in the left lateral decubitis position and pre-procedure medications were administered and a bite block was placed. The endoscope was inserted into the mouth and advanced under direct vision to the third part of duodenum. A careful inspection was made as the upper endoscope was withdrawn including a retroflexed examination of the proximal stomach; Findings and interventions are described below. Findings: Larynx:normal Esophagus: GE junction at 35 cm, diaphragm hiatus at 35 cm, normal mucosa- bx taken from distal and proximal esophagus Stomach:Mild erythema. Biopsies were obtained. Grade 2 flap valve on retroflexed examination of the cardia. Duodenum: Normal bulb and descending duodenum, bx taken Intervention: Biopsies as noted above, COLONOSCOPY Instrument: Olympus variable stiffness pediatric scope 190L Colonoscopy Monitoring: Vital signs and clinical assessment, continuous EKG monitoring, Pulse oximetry, Carbon Dioxide monitoring and blood pressure monitoring were done throughout the procedure. Colon withdrawal time was 10 minutes. Procedure: The patient was placed in the left lateral decubitis position and pre-procedure medications were administered. After a digital rectal examination of the ano-rectum, the video colonoscope was inserted into the rectum and advanced through the colon to the cecum/TI. The colonoscope was slowly withdrawn in a retrograde panoramic fashion and the colon mucosa was carefully examined including a retroflexed view of the rectum. Findings and interventions are described below. Procedure Difficulty:moderate Findings: Terminal Ileum-normal Cecum:normal Ascending Colon: normal Transverse Colon -normal Descending Colon:normal Sigmoid Colon: 8-9 mm sessile polyp removed with cold snare Rectum: Retroflexion with small internal hemorrhoids, grade I Anorectum - normal Colon preparation: [place] Bowel Preparation Scale Right colon; 2 Transverse colon: 2 Left colon; 2 (0 = Unprepared colon segment with mucosa not seen due to solid stool that cannot be cleared. 1 = Portion of mucosa of the colon segment seen, but other areas of the colon segment not well seen due to staining, residual stool and/or opaque liquid. 2 = Minor amount of residual staining, small fragments of stool and/or opaque liquid, but mucosa of colon segment seen well. 3 = Entire mucosa of colon segment seen well with no residual staining, small fragments of stool or opaque liquid) Impression and Post Procedure Diagnosis: Endoscopy Findings: mild gastritis inlet patch patulous LES Colonoscopy Findings: internal hemorrhoids colon polyp Plan: Await Pathology results Repeat Colonoscopy in 5-7 years if adenomatous polyp, 10 yrs if hyperplastic or earlier if clinically indicated High fiber diet leaflet avoid straining at stool, epsom salts and sitz bath, anusol supps or cream GERD precautions Above findings were reviewed with the patient and relevant handouts were provided if indicated.
[2024-04-17 10:28] VITALS: BP 133/96; PULSE 92; RESP 16; TEMP 36.6; O2SAT 99
[2024-04-17 10:43] VITALS: BP 138/99; PULSE 92; RESP 16; TEMP 36.6; O2SAT 99
== END 2024-04-17 11:23 | disposition home or self-care (01) ==
PROVIDERS: Nurse Practitioner; PCP Internal Medicine; Visit Provider Internal Medicine Gastroenterology
PROC: (CPT 45385; principal; 2024-04-17 09:40)
DX: Z12.11 Encounter for screening for malignant neoplasm of colon (principal); D12.5 Benign neoplasm of sigmoid colon; K64.0 First degree hemorrhoids; R12 Heartburn; K29.60 Other gastritis without bleeding; K22.89 Other specified disease of esophagus; K44.9 Diaphragmatic hernia without obstruction or gangrene; Q39.8 Other congenital malformations of esophagus; J30.9 Allergic rhinitis, unspecified; E55.9 Vitamin D deficiency, unspecified; G93.32 Myalgic encephalomyelitis/chronic fatigue syndrome; U09.9 Post COVID-19 condition, unspecified; F32.A Depression, unspecified; Z79.899 Other long term (current) drug therapy; Z79.51 Long term (current) use of inhaled steroids; Z88.8 Allergy status to other drugs, medicaments and biological substances; F17.210 Nicotine dependence, cigarettes, uncomplicated
CPT/HCPCS: 45385; 43239; 81025; 88305; 88313; 88342; J1596; J2704

== ENCOUNTER → 2024-04-17 07:44 | Outpatient (BNV) | payer OTHER, SELFPAY | PROVIDERS: PCP Internal Medicine; Visit Provider Internal Medicine Gastroenterology | DX: Z12.11 Encounter for screening for malignant neoplasm of colon (principal); D12.5 Benign neoplasm of sigmoid colon; K64.0 First degree hemorrhoids; K21.9 Gastro-esophageal reflux disease without esophagitis; K29.70 Gastritis, unspecified, without bleeding; K22.89 Other specified disease of esophagus | CPT/HCPCS: 43239; 45385 ==

== ENCOUNTER 2025-02-13 10:39 | Outpatient (REF) | payer OTHER, SELFPAY ==
--- OUTSIDE RECORDS SUMMARY | 2025-02-13 11:43 | XMS_ITS | Clinical Summary ---
Author Organization 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 Name Role Phone Pcp, No Primary Care Provider [phone] Social History Tobacco Use Types Packs/Day Years Used Date Smoking Tobacco: Never Assessed Comments Unknown Sex and Gender Information Value Date Recorded Sex Assigned at Not on file Legal Sex Female 10:56 AM EDT Gender Identity Not on file Sexual Orientation Not on file Plan of Treatment Health Maintenance Due Date Last Done Comments Colorectal Cancer: COLONOSCO PY Screening every 10 yrs (or Modifier) 1975 Depression: Screening Annual ly using PHQ-2/9 in Adults 18 yrs or above (or HM Modifier)([facility]) 1993 Hepatitis C Virus Infection in Adolescents and Adults: Screening (or Modifier) ([facility]) 1993 SDOH Screening Reminder: Annually for all adults ([facility]) 1993 Tobacco Smoking Cessation: i n Adults excluding Women: Behavioral and Pharmacotherapy Interventions ([facility]) 1993 Cervical Cancer Screenin-65 yrs of age (or Modifier) 1996 Cervical Cancer Screening: P ap every 3 yrs pts age 21-65 1996 Cervical Cancer: Pap Screeni ng with Modifier timing ([facility]) 1996 Cervical Cancer: hrHPV alone or with cotesting Pap for Pts 30-65yrs screening every 5yrs ([facility]) 1996 Colorectal Cancer Screening 45 -75 Yrs (or HM Modifier) 2020 Colorectal Cancer: FLEXIBLE SIGMOIDOSCOPY Screening every 5 yrs 2020 Colorectal Cancer: Fecal Immunochemical Test (FIT) Annually [facility] 2020 Colorectal Cancer: High-sensitivity gFOBT Screening Annually [facility] 2020 Colorectal Cancer: Stool Cologuard Screening every 3 yrs 2020 Colorectal Cancer:CT Colonography Screening every 5 yrs 2020 Lipid Screening: Every 5 yrs for Women aged 45+ (or HM Modifier) ([facility]) 2021 DTaP/Tdap/Td Vaccines ([facility]) (3 - Td or Tdap) 01/27/2022 01/28/2012, 10/03/2010 COVID-19 Vaccine Screening: Initial Series and Booster Status ([facility]) (2023- season) 2024 Flu Vaccination: Yearly for ages 18mos through 64 years (or Modifier)([facility]) 05/03/2025 Zoster/Shingles Vaccine Seri es Screening: Adults aged 18+ yrs (or HM Modifiers)([facility] ) (1 of 2) 2025 Pneumococcal Vaccination Screening: Pts 0-19 & 19-49 yrs of age ([facility] ) Aged Out 10/03/2010 No longer eligible based on patient's age to complete this topic Medical Devices Not on file Insurance [facility] [employer] Care Teams Horse Farm Manager Relationship Specialty Start Date End Date Pcp, [place] PCP - General Family Medicine 12/28/24
[2025-02-13 14:24] LABS: Alanine Aminotransferase 38 U/L (0-31); Anion Gap 11 (12-20); Aspartate Amino Transferase 32 U/L (5-31); Blood Urea Nitrogen 16 mg/dL (9-16); Calcium 9.3 mg/dL (8.4-10.2); Carbon Dioxide 26 mmol/L (22-29); Chloride 105 mmol/L (96-108); Cholesterol 239 mg/dL (<200); Estimated Glomerular Filt Rate > 60; Glucose Fasting 88 mg/dL (60-99); HDL Cholesterol 66 mg/dL (>40); LDL Cholesterol Calculated 132 mg/dL (<100); Potassium 4.1 mmol/L (3.3-5.1); Sodium 138 mmol/L (135-145); Triglycerides 209 mg/dL (<150)
[2025-02-13 14:27] LABS: Vitamin D 25-OH Total 78.6 ng/mL (>30)
== END 2025-02-13 10:40 | disposition home or self-care (01) ==
LOC: HO.HMGCLDS 10:39
PROVIDERS: PCP Internal Medicine; Visit Provider Internal Medicine
DX: Z00.01 Encounter for general adult medical examination with abnormal findings (principal); G47.9 Sleep disorder, unspecified; R06.83 Snoring; F33.42 Major depressive disorder, recurrent, in full remission; G47.19 Other hypersomnia; K29.70 Gastritis, unspecified, without bleeding; Z71.89 Other specified counseling; Z86.0101 Personal history of adenomatous and serrated colon polyps; E55.9 Vitamin D deficiency, unspecified; Z13.220 Encounter for screening for lipoid disorders; Z13.1 Encounter for screening for diabetes mellitus
CPT/HCPCS: 36415; 80048; 80061; 82306; 84450; 84460; 96127; 99396; 99497

== ENCOUNTER 2025-02-13 13:02 | Outpatient (AMB) | payer OTHER, SELFPAY ==
--- NOTE | 2025-02-13 13:04 | A.OFFPC_ITS ---
Vital Signs 02/13/25 13:09 Height 5 ft 4 in Weight 175 lb BMI 30.0 BP 116/90 H Blood Pressure Location Rt brachial Position Sitting Respiration 16 Pulse 94 Pulse Source Pulse Oximeter Temp 98.0 F Temp Source Oral Pulse Oximetry (%) 98 Oxygen Delivery Method Room Air Intake Visit Reasons: Annual PE Intake Note: Pt is here today for her PE: Allergies bupropion Allergy (Unknown, Verified 02/13/25 13:30) Constipation Medication List - Last Reconciled 02/13/25 by Becky Nowak MD fluoxetine 20 mg PO QAM fluticasone propionate 50 mcg/actuation 1 spray intranasal DAILY loratadine (Allergy Relief (loratadine)) 10 mg PO DAILY PRN nortriptyline 50 mg PO BEDTIME omeprazole 20 mg PO DAILY Tobacco use date assessed: 02/13/25 Dental Screening Dental Screen Date: 02/13/25 Did you have a dental visit in the last 12 months?: Yes Did you have a dental problem in the last 6 months where you did not have access to dental care?: No Was dental information given to patient?: Patient has dentist HPI Annual PE HPI Details 49-year-old lady with history of depress ion/anxiety, currently followed by Dayna Rashid, here today for her physical exam. - Up-to-date with her screening mammogra m, done at [facility] 12/04/2024 with negative findings. She sees [facility], Dr. Leila Salmon, who did her last cervical cancer screening 01/03/2025 with negative HPV and negative findings. - up-to-date with her screening colonosc opy last done by Dr. Guevara in 2023 with removal of a tubular adenoma in her sigmoid colon, repeat screening due again in 2028 an upper endoscopy was also done at the same time which showed presence of a gastritis. Patient was prescribed omeprazole 20 mg once a day but she has only been taking it irregularly, keeps forgetting to take it in the morning. Does complaining of recurrent heartburn symptoms and abdominal bloating especially after eating salad also complains of constipation. Has an appointment scheduled for a follow-up with GI later this month. - she has been complaining of frequent n ighttime awakening, and loud snoring. Wakes up very sleeping and has excessive daytime sleepiness, would like a referral to the sleep clinic for evaluation for possible sleep apnea. -has seasonal allergies, takes loratadin e and fluticasone nasal spray as needed. 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 Brother No problems noted. Sister No problems noted. Sister No problems noted. Daughter No problems noted. Social History Housing: House Alcohol intake: current Alcohol intake frequency: does not drink Patient Tobacco Use Status: Current everyday Tobacco user e-Cigarette/Vaping Use: Never Used service: No Current occupational status: employed Cognitive needs: No Hearing needs: No Vision needs: Yes Questionnaire PHQ-9 Over the last 2 weeks, how often have you been bothered by any of the following problems? 1. Little interest or pleasure in doing things: not at all 2. Feeling down, depressed, or hopeless: not at all 3. Trouble falling or staying asleep, or sleeping too much: not at all 4. Feeling tired or having little energy: several days 5. Poor appetite or overeating: several days 6. Feeling bad about yourself - or that you are a failure or have let yourself or your family down: not at all 7. Trouble concentrating on things, such as reading the newspaper or watching television: not at all 8. Moving or speaking so slowly that other people could have noticed. Or the opposite - being so fidgety or restless that you have been moving around a lot more than usual: not at all 9. Thoughts that you would be better off or of hurting yourself in some way: not at all Total score: 2 Depression Screening Interpretation: Negative (sees Dayna Rashid , controlled on meds) Depression Screening Done: Yes 93867 - PHQ-9 Billing: Yes Source: Developed by Drs. Baron Puckett, Jessica Hicks, Brad Wynn and colleagues, with an educational chris from [employer]. Thrive Questionnaire Date Thrive assessed: 02/13/25 I am a: Patient What is your living situation today?: I have a steady place to live Within the past 12 months, did the food you bought not last and you didn't have the money to get more?: Never true Within the past 12 months, did you worry whether your food would run out before you got money to buy more?: Never true Do you have trouble paying for medicines?: No Do you have trouble getting transportation to medical appointments?: No Do you have trouble paying your heating and electricity bill?: Yes Do you have trouble taking care of your child, family member or friend?: No Do you have trouble with day-to-day activities such as bathing, preparing meals, shopping, managing finances, etc.?: No Are you currently unemployed and looking for a job?: No Are you interested in more education?: No Please select the resources that you would like help with: None Currently or been in a relationship where the following occur: No concerns reported THRIVE Score: 1 AUDIT C Alcohol Use Questionnaire (AUDIT-C) 1. How often do you have a drink containing alcohol?: 2-3 times a week 2. How many drinks containing alcohol do you have on a typical day when you are drinking?: 3 or 4 3. How often do you have six or more drinks on one occasion?: Never Total Score: 4 CHRISTOPHER-7 AMB Questionnaire CHRISTOPHER-7 Date CHRISTOPHER - 7 assessed: 02/13/25 Feeling nervous, anxious, or on edge: 1 = Several days Not being able to stop or control worryin = Not at all Worrying too much about different things: 0 = Not at all Trouble relaxin = Not at all Being so restless that it is hard to sit still: 0 = Not at all Becoming easily annoyed or irritable: 1 = Several days Feeling afraid as if something awful might happen: 1 = Several days Total CHRISTOPHER-7 score (0-4 normal; 5-9 mild; 10-14 moderate; 15-21 severe): 3 Source: Developed by Drs. Baron Puckett, Jessica Hicks, Brad Wynn and colleagues, with an educational chris from [employer]. CHRISTOPHER-7 Assessment Billing CHRISTOPHER-7 Assessment Tool: CHRISTOPHER-7 Assessment 79051 Review of Systems Const Denies body aches, Denies chills, Denies fever(s), Denies poor appetite and Denies weakness Eyes Details: sees [place] [facility] [place], wears bifocal Denies change in vision ENT Reports Normal hearing present, Denies ear discharge, Denies neck pain, Denies sore throat and Denies throat swelling Card Denies chest pain, Denies chest pain at rest, Denies chest pain with activity and Denies pedal edema Resp Reports no additional complaints GI Reports as per HPI, Denies abdominal pain, Denies melena, Reports bloating, Denies hematochezia and Denies change in bowel habits Details: Urinary frequency/urgency, has an appointment to see Dr. Maribel Saldaña on March 2025 [place] Denies abnormal gait, Denies myalgias, Denies arthralgias, Denies muscle cramps, Denies muscle weakness and Denies neck pain Skin/Breast Denies rash and Denies skin pain Neuro Reports Normal hearing present, Denies abnormal gait and Denies weakness Psych Details: ff'd by Dayna Rashid for anxiety depressed Reports no additional complaints Endo Reports no additional complaints Boris/Lymph Denies easy bleeding, Denies easy bruising and Denies lymphadenopathy Aller/Immun Denies throat swelling Physical exam (Primary Care) Vital Signs: Last Vital Signs Temp 98.0 F 02/13/25 13:09 Pulse 94 02/13/25 13:09 Resp 16 02/13/25 13:09 BP 116/90 H 02/13/25 13:09 Pulse Ox 98 02/13/25 13:09 Oxygen Delivery Method Room Air 02/13/25 13:09 BMI result Body Mass Index 30.0 Tobacco/Smoking Status: Tobacco use Status Tobacco use date assessed 02/13/25 02/13/25 13:06 Patient Tobacco Use Status Current everyday Tobacco 02/13/25 13:06 e-Cigarette/Vaping Use Never Used 02/13/25 13:06 PHQ-9: PHQ-9 Score PHQ-9: Total score 2 02/13/25 13:06 Depression Screening Interpretation: Negative (sees Dayna [facility] Rachid , controlled on meds) Thrive Assessment: Date of Thrive Assessment Date Thrive assessed 02/13/25 02/13/25 13:06 Currently or been in a relationship where the following occur: No concerns reported Advance Care Planning discussion: Completed/Scanned Date of discussion: 02/13/25 Who was present: Patient Forms completed: Health Care Proxy Time spent: 16-45 minutes Actual minutes spent: 2 Const General: no acute distress and alert Orientation/consciousness: patient oriented x3 HENMT Ears: external ears normal, TM's normal bilaterally and EAC's normal General nose exam: Normal external nose present Mouth: Normal oral and palatal mucosa present, oropharynx normal and moist mucous membranes Eyes General: appearance normal, both eyes and all related structures Conjunctivae: conjunctivae normal Sclerae: sclerae normal Pupils: Equal, round and reactive pupils present EOM: EOMs intact bilaterally Neck Neck: Yes full ROM, Yes no lymphadenopathy and Yes supple Chest Breast/axilla palpation: normal palpation of the breasts Resp Effort & Inspection: normal respiratory effort Auscultation: clear to auscultation bilaterally Cardio Rate: regular rate Rhythm: regular rhythm Heart sounds: S1 normal heart sound present and S2 normal heart sound present GI Palpation (GI): Soft to palpation, nontender and no masses Auscultation: normal bowel sounds General: Yes deferred (sees Dr Leila Salmon at [facility]) Back/Spine/Pelvis Back: No back tenderness Skin General skin exam: no rashes or lesions noted Neuro General: patient oriented x3, gait normal, tone normal, moves all extremities, Normal light touch and pain sensation and no focal motor deficits Cranial nerves: Yes Equal, round and reactive pupils present and Yes Normal hearing present Cognition (Neuro): normal cognition Extrem General: Yes full ROM, Yes no joint enlargement, Yes no clubbing, cyanosis or edema and Yes no calf tenderness Psych Appearance: grossly normal and well kempt Mental Status: mental status grossly normal Speech and movement: Normal speech and movement present Affect: normal affect Attitude: cooperative Thought process: Normal thought process present Thought content: Normal thought content present Results Reviewed Results Reviewed: Name: Marlys Barron Age/Sex: 49/F : 1975 Unit#: [id number] Attend Dr: Becky Nowak MD Re02/13/25 Status: REG REF Location: [facility] Disch: SPEC : [id number] DAWNA: 02/13/25 STATUS: COMP REQ : [id number] RECD: 02/13/[address]: Becky Nowak MD COMP: 02/13/25 ENTERED: 02/13/[address] [facility] DR: ORDERED: Met Prof Fast, AST, ALT, Lipid Panel, Vitamin D 25-OH Test Result Flag Reference Sodium 138 135-145 mmol/L Potassium 4.1 3.3-5.1 mmol/L CL 105 96-108 mmol/L CO2 26 22-29 mmol/L Gap 11 L 12-20 BUN 16 9-16 mg/dL Creat 0.79 0.5-1.4 mg/dL eGFR > 60 Chronic Kidney Disease: Estimated GFR < 60 mL/mi n/1.73m2 Severe Kidney Disease: Estimated GFR < 15 mL/min/1.73m2 FBS 88 60-99 mg/dL CA 9.3 8.4-10.2 mg/dL AST (GOT) 32 H 5-31 U/L ALT (GPT) 38 H 0-31 U/L Triglyceride 209 H <150 mg/dL Desirable Triglyceride: less than 150 mg/dL Borderline High Triglyceride 150-199 mg/dL High Triglyceride: 200-499 mg/dL Very High Triglyceride: greater than or equal to 5OO mg/dL Cholesterol 239 H <200 mg/dL Desirable Cholesterol: less than 200 mg/dL Borderline High Cholesterol: 200-239 mg/dL High Cholesterol: greater than 239 mg/dL LDL Calculated 132 H <100 mg/dL Desirable LDL: less than 100 mg/dL Near Optimal/Above Optimal LDL: 110-129 mg/dL Borderline High LDL: 130-159 mg/dL High LDL: 160-189 mg/dL Very High LDL: greater than or equal to 190 mg/dL HDL 66 >40 mg/dL Desirable HDL: greater than 40 mg/dL Note: This HDL assay may give artificially low results in patients with liver disease. 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 G47.9 Loud snoring R06.83 Recurrent major depressive disorder, in full remission F33.42 Depression Type: major depressive disorder Major depression recurrence: recurrent Active/Remission status: in full remission Excessive daytime sleepiness G47.19 History of adenomatous polyp of colon Z86.0101 Gastritis without bleeding, unspecified chronicity, unspecified gastritis type K29.70 Gastritis type: unspecified gastritis Chronicity: unspecified Gastritis bleeding: without bleeding Advanced directives, counseling/discussion Z71.89 Additional Codes PHQ-9 - 26050 - PHQ-9 Billing: Yes ([id number]) CHRISTOPHER-7 Assessment Billing - CHRISTOPHER-7 Assessment Tool: CHRISTOPHER-7 Assessment 65766 ([id number]) Vital Signs *Quality* - Advance Care Planning discussion: Completed/Scanned ([id number]) Vital Signs *Quality* - Time spent: 16-45 minutes ([id number]) Assessment & Plan Assessment & Plan (1) Annual visit for general adult medical examination with abnormal findings: Code(s): Z00.01 - Encounter for general adult medical examination with abnormal findings Plan: Recent fasting lab results showed normal electrolytes, renal function, fasting glucose, slightly elevated liver enzymes, elevated triglycerides but lower LDL cholesterol as compared to last check and normal vitamin-D level. Continue with regular dental visit every 6 months and regular eye exams, at least every 2 years. Take adequate calcium in diet and vitamin-D 3 at 2000 IU per cap once a day, in addition to weight-bearing exercises to help maintain good muscle tone and weight control. She is up-to-date with her screening mammogram, goes to [facility], up-to-date with her cervical cancer screening, sees Dr. Salmon at [facility]. Up-to-date with her screening colonoscopy done in 2023 with removal of a tubular adenoma polyp, repeat due again in 2028. 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: Code(s): G47.9 - Sleep disorder, unspecified Category: Medical Plan: Referred to sleep medicine Clinic for evaluation of any sleep disorder (3) Loud snoring: Code(s): R06.83 - Snoring Plan: Referral ordered to sleep lab for further evaluation (4) Depression: Code(s): F32.9 - Major depressive disorder, single episode, unspecified Category: Medical Qualifiers: Depression Type: major depressive disorder Major depression recurrence: recurrent Active/Remission status: in full remission Qualified Code(s): F33.42 - Major depressive disorder, recurrent, in full remission Plan: Currently sees Psychiatry, and therapist, currently stable and controlled on fluoxetine (5) Excessive daytime sleepiness: Code(s): G47.19 - Other hypersomnia Category: Medical Plan: Referred to sleep clinic lab (6) History of adenomatous polyp of colon: Code(s): Z86.0101 - Personal history of adenomatous and serrated colon polyps Category: Medical Plan: Last colonoscopy was done 2023, due for recheck again in 2028 (7) Gastritis: Comment: Seen on EGD done 2023 Code(s): K29.70 - Gastritis, unspecified, without bleeding Category: Medical Qualifiers: Gastritis type: unspecified gastritis Chronicity: unspecified Gastritis bleeding: without bleeding Qualified Code(s): K29.70 - Gastritis, unspecified, without bleeding Plan: Advised to start taking omeprazole daily 20 mg once a day in a.m. an hour before breakfast and before her medications of the day. Has a follow-up appointment to see GI clinic on 03/06/2025 (8) Advanced directives, counseling/discussion: Code(s): Z71.89 - Other specified counseling Plan: Initiated the conversation about Advanced Directives. Advanced Directives help patients prepare for current and future decisions about their medical treatment and place of care. Discussed with patient that it is a process where a patients current condition and prognosis are reviewed, their wishes for information regarding their illness are elicited, and likely medical dilemmas are presented and options discussed. Healthcare proxy form completed today. The form can be amended as needed, reviewed yearly and make changes as needed Orders: Referrals Sleep Medicine Referral G47.19 - Other hypersomnia, G47.9 - Sleep disorder, unspecified, R06.83 - Snoring
[2025-02-13 13:09] VITALS: BP 116/90; PULSE 94; RESP 16; TEMP 36.7; O2SAT 98
--- OUTSIDE RECORDS SUMMARY | 2025-02-13 13:19 | XMS_ITS | Clinical Summary ---
Author Organization [facility] [email or web address] & [facility] lin Address [address] [place] [address] Care Team Providers Care Insurance Territory Manager Name Role Phone Pcp, No Primary Care Provider [phone] Social History Tobacco Use Types Packs/Day Years [...] Adults 18 yrs or above (or HM Modifier)([facility]) 1993 Hepatitis C Virus Infection in Adolescents and Adults: Screening (or Modifier) ([facility]) 1993 SDOH Screening Reminder: Annually for all adults ([facility]) 1993 Tobacco Smoking Cessation: i n Adults excluding Women: Behavioral and Pharmacotherapy Interventions ([facility]) 1993 Cervical Cancer Screenin-65 yrs of age (or Modifier) 1996 Cervical Cancer Screening: P ap every 3 yrs pts age 21-65 1996 Cervical Cancer: Pap Screeni ng with Modifier timing ([facility]) 1996 Cervical Cancer: hrHPV alone or with cotesting Pap for Pts 30-65yrs screening every 5yrs ([facility]) 1996 Colorectal Cancer Screening 45 -75 Yrs (or HM Modifier) 2020 Colorectal Cancer: FLEXIBLE SIGMOIDOSCOPY Screening every 5 yrs 2020 Colorectal Cancer: Fecal Immunochemical Test (FIT) Annually [facility] 2020 Colorectal Cancer: High-sensitivity gFOBT Screening Annually [facility] 2020 Colorectal Cancer: Stool Cologuard Screening every 3 yrs 2020 Colorectal Cancer:CT Colonography Screening every 5 yrs 2020 Lipid Screening: Every 5 yrs for Women aged 45+ (or HM Modifier) ([facility]) 2021 DTaP/Tdap/Td Vaccines ([facility]) (3 - Td or Tdap) 01/27/2022 01/28/2012, 10/03/2010 COVID-19 Vaccine Screening: Initial Series and Booster Status ([facility]) (2023- season) 2024 Flu Vaccination: Yearly for [...] topic Medical Devices Not on file Insurance [facility] [employer] Care Teams Insurance Territory Manager Relationship Specialty Start Date End Date Pcp, [place] PCP - General Family Medicine 12/28/24
== END 2025-02-13 13:58 | disposition home or self-care (01) ==
LOC: HO.HMCC 13:03
PROVIDERS: PCP Internal Medicine; Visit Provider Internal Medicine
DX: Z00.01 Encounter for general adult medical examination with abnormal findings (principal); G47.9 Sleep disorder, unspecified; R06.83 Snoring; F33.42 Major depressive disorder, recurrent, in full remission; G47.19 Other hypersomnia; Z86.0101 Personal history of adenomatous and serrated colon polyps; K29.70 Gastritis, unspecified, without bleeding; Z71.89 Other specified counseling; Z00.00 Encounter for general adult medical examination without abnormal findings

== ENCOUNTER 2025-03-06 13:35 | Outpatient (AMB) | payer OTHER, SELFPAY ==
--- NOTE | 2025-03-06 13:43 | MHC.OFFVIS ---
Vital Signs 03/06/25 13:48 Height 5 ft 4 in Weight 169 lb 12.095 oz BMI 29.1 BP 132/85 Blood Pressure Location Lt brachial Position Sitting Pulse 84 Intake Visit Reasons: S/P EGD and Colonoscopy was [facility] PT Intake Note: Marlys presents in the office as a follow up for EGD. CC: She is here for results. Was [facility] patient in the past. Shipping And Receiving Required: No Allergies bupropion Allergy (Unknown, Verified 03/06/25 13:48) Constipation HPI Comments Details: 49 y.o F with PMH of who is here to cont care with [facility]. Was prev being seen by [facility] [place] [place]. s/p EGD/colo 04/2024: Endoscopy Findings: mild gastritis inlet patch patulous LES Colonoscopy Findings: internal hemorrhoids colon polyp Path: A. Colon, sigmoid, polypectomy: Tubular adenoma; negative for high-grade dysplasia or carcinoma. B. Duodenum, biopsy: Duodenal mucosa within normal limits; negative for celiac disease. C. Stomach, biopsy: Oxyntic mucosa with mild chronic inactive inflammation; no Helicobacter organisms seen. D. Esophagus, distal, biopsy: Squamous epithelium within normal limits; no inflammation seen. E. Esophagus, proximal, biopsy: Squamous epithelium within normal limits; no inflammation seen Reports intermittent heartburn, well controlled on omeprazole. Also has occ bloating which has gotten worse in the last one year - attrubutes this to perimenopausal changes. 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 Brother No problems noted. Sister No problems noted. Sister No problems noted. Daughter No problems noted. Social History (Reviewed 03/06/25 @ 13:48 by WILL Garner Housing: House Alcohol intake: current Alcohol intake frequency: does not drink Patient Tobacco Use Status: Current everyday Tobacco user e-Cigarette/Vaping Use: Never Used service: No Current occupational status: employed Cognitive needs: No Hearing needs: No Vision needs: Yes Review of Systems Const All systems reviewed & are unremarkable except as noted in HPI and below Physical Exam Vital Signs: Last Vital Signs Pulse 84 03/06/25 13:48 BP 132/85 03/06/25 13:48 BMI result Body Mass Index 29.1 No apparent distress Nonicteric Abdomen soft, nondistended Alert and oriented x3, normal gait Assessment & Plan Assessment & Plan (1) History of adenomatous polyp of colon: Code(s): Z86.0101 - Personal history of adenomatous and serrated colon polyps Category: Medical (2) Gastritis: Comment: Seen on EGD done 2023 Code(s): K29.70 - Gastritis, unspecified, without bleeding Category: Medical Qualifiers: Gastritis type: unspecified gastritis Chronicity: unspecified Gastritis bleeding: without bleeding Qualified Code(s): K29.70 - Gastritis, unspecified, without bleeding Plan Hx of polyp: Given size of polyp, recommend repeat colo in 5-7 years. GERD: Avoid dietary triggers. Daily and appropriate use of omeprazole reviewed. Discussed that if sx occur < 50% of the time, H2 sheree may be a more convenient option to be taken as needed. Follow up as needed. Medications: Refilled omeprazole 20 mg PO DAILY 90 caps 2RF Coding Level of Care Code Est Pt Level 3 (93846) Diagnoses History of adenomatous polyp of colon Z86.0101 Gastritis without bleeding, unspecified chronicity, unspecified gastritis type K29.70 Gastritis type: unspecified gastritis Chronicity: unspecified Gastritis bleeding: without bleeding
[2025-03-06 13:48] VITALS: BP 132/85; PULSE 84; BMI 29.1
--- OUTSIDE RECORDS SUMMARY | 2025-03-06 13:48 | XMS_ITS | Clinical Summary ---
Author Organization [facility] [employer] [facility] lin Address [address] [place] [address] Care Team Providers Care Relief Driller Name Role Phone Pcp, No Primary Care Provider [phone] Social History Tobacco Use Types Packs/Day Years [...] Adults 18 yrs or above (or HM Modifier)([facility]) 1993 Hepatitis C Virus Infection in Adolescents and Adults: Screening (or Modifier) ([facility]) 1993 SDOH Screening Reminder: Annually for all adults ([facility]) 1993 Tobacco Smoking Cessation: i n Adults excluding Women: Behavioral and Pharmacotherapy Interventions ([facility]) 1993 Cervical Cancer Screenin-65 yrs of age (or Modifier) 1996 Cervical Cancer Screening: P ap every 3 yrs pts age 21-65 1996 Cervical Cancer: Pap Screeni ng with Modifier timing ([facility]) 1996 Cervical Cancer: hrHPV alone or with cotesting Pap for Pts 30-65yrs screening every 5yrs ([facility]) 1996 Colorectal Cancer Screening 45 -75 Yrs (or HM Modifier) 2020 Colorectal Cancer: FLEXIBLE SIGMOIDOSCOPY Screening every 5 yrs 2020 Colorectal Cancer: Fecal Immunochemical Test (FIT) Annually [facility] 2020 Colorectal Cancer: High-sensitivity gFOBT Screening Annually [facility] 2020 Colorectal Cancer: Stool Cologuard Screening every 3 yrs 2020 Colorectal Cancer:CT Colonography Screening every 5 yrs 2020 DTaP/Tdap/Td Vaccines ([facility]) (3 - Td or Tdap) 01/27/2022 01/28/2012, 10/03/2010 COVID-19 Vaccine Screening: Initial Series and Booster Status ([facility]) ( - 2023- season) 2024 Flu Vaccination: Yearly for ages 18mos through 64 years (or Modifier)([facility] ) 05/03/2025 Zoster/Shingles Vaccine Seri es Screening: Adults aged 18+ yrs (or HM Modifiers)([facility] ) (1 of 2) 2025 Pneumococcal Vaccination Screening: Pts 0-19 & 19-49 yrs of age ([facility]) Aged Out 10/03/2010 No longer eligible based on patient's age to complete this topic Medical Devices Not on file Insurance [facility] [employer] Care Teams Relief Driller Relationship Specialty Start Date End Date Pcp, No PCP - General Family Medicine 12/28/24
== END 2025-03-06 15:30 | disposition home or self-care (01) ==
LOC: HO.HGI 13:36
PROVIDERS: PCP Internal Medicine; Visit Provider Internal Medicine
DX: Z86.0101 Personal history of adenomatous and serrated colon polyps (principal); K29.70 Gastritis, unspecified, without bleeding
CPT/HCPCS: 99213

== ENCOUNTER → 2025-03-06 13:35 | Outpatient (BNVA) | payer OTHER, SELFPAY | PROVIDERS: PCP Internal Medicine; Visit Provider Internal Medicine | DX: K29.70 Gastritis, unspecified, without bleeding (principal); Z86.0101 Personal history of adenomatous and serrated colon polyps | CPT/HCPCS: 99212 ==

== ENCOUNTER 2025-08-02 10:56 | Outpatient (AMB) | payer OTHER, SELFPAY ==
[2025-08-02 11:20] VITALS: BP 118/86; PULSE 88; O2SAT 98; BMI 28.7
--- NOTE | 2025-08-02 11:20 | A.OFFVIS_ITS ---
Vital Signs 08/02/25 11:20 Height 5 ft 4 in Weight 167 lb 6 oz BMI 28.7 BP 118/86 Blood Pressure Location Rt brachial Position Sitting Pulse 88 Pulse Source Pulse Oximeter Pulse Oximetry (%) 98 Oxygen Delivery Method Room Air Intake Visit Reasons: INP-Sleep / Snoring Intake Note: Patient presents [employer] snoring. She has been complaining of frequent nighttime awakening, and loud snoring. Wakes up very sleeping and has excessive daytime sleepiness. Patient states just snoring no witnessed/gasping. Goes to bed at 9pm wakes up 6:15am. Wakes up 4-5 times a night. Naps 1hr. Morning headaches(verigo- metapause). No history of sleep studies. Allergies bupropion Allergy (Unknown, Verified 08/02/25 11:25) Constipation HPI Comments Details: 49 year old female referred to us by Dr. Nowak for an evaluation of sleep apnea. 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 She has multiple night time arousals and snores all night long per her boyfriend. She must have the tv on all night long. She has morning headaches, with dizziness and vertigo which lasts for 30min then resolves with coffee. She has bruxism with pitting in the #9 incisor, due to teeth shifting. She goes to bed at 9pm and falls asleep at midnight. She gets up 4-5x for a bathroom break. She drinks water all day long and keeps hydrating until 8pm. Dander triggers her postnasal drip. She has GERD and takes 20mg po daily for symptomatic relief. She has neuropathy bilaterally in her hands and symptoms are worse at night. She denies RLS. She has gained 20lbs in the last few years. Her mood is irritable she takes fluoxetine 20mg po, and this alleviates anxiety, depression, and mood irritability due to vasomotor symptoms. She also takes Nortriptyline 50mg po, along Clonidine o.3mg po tid prn and is being managed by her [facility]/ therapist. Her memory is stable. Diet is poor, though eats everything in moderation. She is not active. She does not smoke, however drinks a cocktail every other day. [facility] Medical History Gastritis History of adenomatous polyp of colon Excessive daytime sleepiness Repeated interruption of sleep during rapid eye movement stage Allergic rhinitis COVID-19 long hauler manifesting chronic fatigue History of 2019 novel coronavirus disease (COVID-19) Depression Surgical History Hx of colonoscopy History of esophagogastroduodenoscopy (EGD) Ganglion cyst of finger of right hand Family History Father HTN (hypertension) Lung cancer Mother Breast cancer Paternal Grandmother Breast cancer Brother No problems noted. Brother No problems noted. Sister No problems noted. Sister No problems noted. Daughter No problems noted. Social History Housing: House Alcohol intake: current Alcohol intake frequency: does not drink Patient Tobacco Use Status: Current everyday Tobacco user e-Cigarette/Vaping Use: Never Used service: No Current occupational status: employed Cognitive needs: No Hearing needs: No Vision needs: Yes Physical Exam Vital Signs: Last Vital Signs Pulse 88 08/02/25 11:20 BP 118/86 08/02/25 11:20 Pulse Ox 98 08/02/25 11:20 Oxygen Delivery Method Room Air 08/02/25 11:20 BMI result Body Mass Index 28.7 Const General: cooperative, comfortable and no acute distress Nutritional Appearance: obese Orientation/consciousness: patient oriented x3 HEENT Face and sinus: Yes normal facial exam Teeth and gingiva: other (mallampti score is 4) Eyes Pupils: Equal, round and reactive pupils present Neck Neck: Yes full ROM Neuro General: patient oriented x3 and moves all extremities Cranial nerves: Yes Equal, round and reactive pupils present, Yes Normal accommodation reflex present, Yes Normal facial strength present, Yes Midline tongue present, Yes Ability to bilaterally rotate head present and Yes Ability to bilaterally elevate shoulders present Cognition (Neuro): normal cognition Gait exam (Neuro): Normal gait present Motor exam (neuro): 5/5 motor strength present throughout and Normal motor muscle tone present throughout Deep tendon reflexes (DTR's): Right triceps reflex intensity grade: 1+, Left triceps reflex intensity grade: 1+, Rt Biceps (C5, C6): 1+, Left biceps reflex intensity grade: 1+, Right brachioradialis reflex intensity grade: 1+, Left brachioradialis reflex intensity grade: 1+, Right patellar reflex intensity grade: 2+ and Left patellar reflex intensity grade: 2+ Psych Appearance: grossly normal Mental Status: mental status grossly normal Speech and movement: Normal speech and movement present Attitude: cooperative Thought process: Normal thought process present Thought content: Normal thought content present Insight: Good insight present (Psych) Judgement: Good judgement present (Psych) Results Reviewed Results Reviewed: labs reviewed with pt. Assessment & Plan Assessment & Plan (1) Excessive daytime sleepiness: Code(s): G47.19 - Other hypersomnia Category: Medical (2) Loud snoring: Code(s): R06.83 - Snoring Category: Medical (3) Chronic fatigue: Code(s): R53.82 - Chronic fatigue, unspecified Category: Medical Plan HST to r/o CHRISTIANO Labs to r/o fatigue CTS will evaluate / monitor for symptoms her last NCS/EMG was over 15 years ago. F/u in 3 months Orders: Orders Ferritin Today G47.19 - Other hypersomnia Methylmalonic Acid Today G47.19 - Other hypersomnia, G47.9 - Sleep disorder, unspecified, R53.83 - Other fatigue Vitamin D 25-OH Total Today G47.19 - Other hypersomnia Vitamin B12 and Folate Today G47.19 - Other hypersomnia TSH reflex Free T4 Today G47.19 - Other hypersomnia RT home sleep study Today G47.19 - Other hypersomnia Homocysteine Today G47.19 - Other hypersomnia, G47.9 - Sleep disorder, unspecified, R53.83 - Other fatigue Patient Instructions: Please complete the following fasting labs to rule out deficiencies. CBC/CMP/ B12/ Vit D/ TSH/ Homocysteine and MMA/ Ferritin. Sleep Hygiene provided: set a scheduled bedtime and wake time to help regulate the circadian rhythm and balance the release of pituitary hormones. Sleep in a dark room, temperatures below 68 degrees, and no devices n bed. Limit caffeinated products 6 hours prior to bed, and limit fluids 2-4 hours prior to bed. Gentle night yoga, diffusing essential oils, and playing soft music can be relaxing. Coding Level of Care Code New Pt Level 4 (72905) Diagnoses Excessive daytime sleepiness G47.19 Loud snoring R06.83 Chronic fatigue R53.82 Sleep Questionnaire Difficulty falling asleep: Yes Difficulty staying asleep?: Yes Number of arousals: 5x Snoring: Yes Witnessed apneas: No Gasping arousals: No Nocturia: Yes GERD: Yes Vivid dreams: No Acting out dreams: Yes Abnormal behavior in sleep: No Abnormal movements in sleep: No Morning headaches: Yes Excessive daytime sleepiness: Yes Daytime naps: Yes (1 hour) Restless legs: Yes Hallucinations: No Sleep paralysis: No Drop attacks: No Sleep Study: No CPAP: No
--- OUTSIDE RECORDS SUMMARY | 2025-08-02 12:27 | XMS_ITS | Clinical Summary ---
Author Organization [facility] lin Address [address] [place] [address] Care Team Providers Care Appeals Rn Name Role Phone [place] Primary Care Provider [phone] Social History Tobacco Use Types Packs/Day Years Used Date Smoking Tobacco: Never Assessed Comments Unknown Sex and Gender Information Value Date Recorded Sex Assigned at Not on file Legal Sex Female 10:56 AM EDT Gender Identity Not on file Sexual Orientation Not on file Plan of Treatment Not on file Medical Devices Not on file Insurance [facility] [employer] Care Teams Appeals Rn Relationship Specialty Start Date End Date [place] Lemons PCP - General Family Medicine 12/28/24
== END 2025-08-02 12:16 | disposition home or self-care (01) ==
LOC: HO.HSMS 10:57
PROVIDERS: PCP Internal Medicine; Visit Provider Physician Assistant Medical
DX: G47.19 Other hypersomnia (principal); R06.83 Snoring; R53.82 Chronic fatigue, unspecified
CPT/HCPCS: 99204

== ENCOUNTER → 2025-08-02 10:56 | Outpatient (BNVA) | payer OTHER, SELFPAY | PROVIDERS: PCP Internal Medicine; Visit Provider Physician Assistant Medical | DX: G47.19 Other hypersomnia (principal); R06.83 Snoring; R53.82 Chronic fatigue, unspecified | CPT/HCPCS: 99202 ==